=== PATIENT | male | born 1925 | race Hispanic/Latino ===

== ENCOUNTER 2017-02-28 15:41 | Inpatient (IN) | payer MEDICARE, MEDICAID ==
[2017-02-28 15:50] VITALS: BMI 25.8
--- NOTE | 2017-02-28 16:47 | ED PDOC ---
Arrival/HPI - General Chief Complaint: Male Genitourinary Time Seen by Provider: 02/28/17 15:51 Historian: Patient, Family (daughter (functioning as facilities administrator, as per patient request.)) - History of Present Illness Narrative History of Present Illness (Text): 02/28/17 15:51 A 89 year old Serbian speaking male, whose past medical history includes diabetes (diet controlled), and BPH, presents to the emergency department complaining of gross hematuria since 1200 today. Patients states prior to 1200 when he went to the bathroom there was no hematuria. He notes it is difficult for him to urinate and has been more frequent. He denies any dysuira, testicular pain, back pain, rectal bleeding, night sweats, loss of weight, abdominal pain, or any other complaints at this time. PMD: Dr. Jimenez Time/Duration: 4-6 hours Symptom Onset: Sudden Symptom Course: Unchanged Quality: Other Activities at Onset: Rest Context: Home Past Medical History - Provider Review Nursing Documentation Reviewed: Yes - Infectious Disease Hx of Infectious Diseases: None - Tetanus Immunization Tetanus Immunization: Unknown - Past Medical History Past Medical History: Unable to Obtain - Cardiac Hx Cardiac Disorders: Yes Hx Hypertension: Yes Other/Comment: cardiac cath 15 years ago - Pulmonary Hx Respiratory Disorders: No - Neurological Hx Neurological Disorder: No - HEENT Hx HEENT Disorder: No - Renal Hx Renal Disorder: No - Endocrine/Metabolic Hx Endocrine Disorders: Yes Hx Diabetes Mellitus Type 2: Yes (NIDD) - Hematological/Oncological Hx Blood Disorders: No - Integumentary Hx Dermatological Disorder: No - Musculoskeletal/Rheumatological Hx Musculoskeletal Disorders: No - Gastrointestinal Hx Gastrointestinal Disorders: No - Genitourinary/Gynecological Hx Genitourinary Disorders: Yes Hx Prostate Problems: Yes - Psychiatric Hx Psychophysiologic Disorder: No Hx Depression: No Hx Emotional Abuse: No Hx Physical Abuse: No Hx Substance Use: No - Past Surgical History Past Surgical History: Unable to Obtain - Surgical History Hx Cardiac Catheterization: Yes - Anesthesia Hx Anesthesia: Yes Hx Anesthesia Reactions: No - Suicidal Assessment Feels Threatened In Home Enviroment: No Family/Social History - Physician Review Nursing Documentation Reviewed: Yes Family/Social History: Unknown Family HX Smoking Status: Never Smoked Hx Alcohol Use: No Hx Substance Use: No Hx Substance Use Treatment: No Allergies/Home Meds Allergies/Adverse Reactions: Allergies No Known Allergies Allergy (Verified 08/02/13 17:21) Home Medications: Home Meds Medication Instructions Recorded Confirmed Clopidogrel [Plavix] 75 mg PO DAILY 08/02/13 02/28/17 MetFORMIN [glucoPHAGE] 500 mg PO DAILY 08/02/13 02/28/17 Atorvastatin [Lipitor] 10 mg PO DAILY 02/28/17 02/28/17 Enalapril/Hydrochlorothiazide 1 tab PO DAILY 02/28/17 02/28/17 [Enalapril-Hctz 10-25 mg Tablet] Metoprolol Succinate [Toprol XL] 25 mg PO DAILY 02/28/17 02/28/17 Review of Systems - Physician Review All systems were reviewed & negative as marked: Yes - Review of Systems Constitutional: absent: Weight Change, Night Sweats Gastrointestinal: absent: Abdominal Pain, Hematochezia Genitourinary Male: Frequency, Hematuria, Other (difficulty urinating; no testicular pain). absent: Dysuria Musculoskeletal: absent: Back Pain Physical Exam Vital Signs Reviewed: Yes Vital Signs Temp Pulse Resp BP Pulse Ox 02/28/17 17:12 86 18 145/79 98 02/28/17 15:52 97.6 F 92 H 19 149/88 98 Temperature: Afebrile Blood Pressure: Normal Pulse: Regular Respiratory Rate: Normal Appearance: Positive for: Well-Appearing, Non-Toxic, Comfortable Pain Distress: None Mental Status: Positive for: Alert and Oriented X 3 - Systems Exam Head: Present: Atraumatic, Normocephalic Pupils: Present: PERRL Extroacular Muscles: Present: EOMI Conjunctiva: Present: Normal Mouth: Present: Moist Mucous Membranes Neck: Present: Normal Range of Motion Respiratory/Chest: Present: Clear to Auscultation, Good Air Exchange. No: Respiratory Distress, Accessory Muscle Use Cardiovascular: Present: Regular Rate and Rhythm, Normal S1, S2. No: Murmurs Abdomen: Present: Normal Bowel Sounds. No: Tenderness, Distention, Peritoneal Signs Genitourinary Male: Present: Other (urine with gross positive blood) Back: Present: Normal Inspection Upper Extremity: Present: Normal Inspection. No: Cyanosis, Edema Lower Extremity: Present: Normal Inspection. No: Edema Neurological: Present: GCS=15, CN II-XII Intact, Speech Normal Skin: Present: Warm, Dry, Normal Color. No: Rashes Psychiatric: Present: Alert, Oriented x 3, Normal Insight, Normal Concentration Medical Decision Making ED Course and Treatment: 02/28/17 15:51 Impression: A 89 year old male with gross hematuria. Differential Diagnosis include but are not limited to: Cancer vs. UTI vs. Kidney failure Plan: -- Labs -- Urinalysis -- Reassess and disposition Prior Visits: Notes and results from previous visits were reviewed. The mello last presented to the emergency department on 08/02/13 for evaluation of constipation. Progress Notes: 02/28/17 17:34 Case was discussed with Urology Dr. Peter, who advises that we hydrate the and admit him for serial hgb and for a cystoscopy tomorrow. IVF ordered. Patient is comfortable. He just felt obstructed when he tried to urinate. He did have another clot of blood that came out. A louis was ordered. I discussed the case with Dr. Zaidi who will place patient on his service. - Lab Interpretations Lab Results: 02/28/17 16:45 02/28/17 16:45 Lab Results 02/28/17 16:45: Sodium 142, Potassium 4.6, Chloride 105, Carbon Dioxide 25, Anion Gap 17, BUN 26 H, Creatinine 1.1, Est GFR ( Amer) > 60, Est GFR ( Non-Af Amer) > 60, Random Glucose 99, Calcium 9.0 02/28/17 16:45: Urine Color Dark red, Urine Appearance Turbid, Urine pH 7.5, Ur Specific Lyman 1.015, Urine Protein >=300 H, Urine Glucose (UA) 250 H, Urine Ketones 40 H, Urine Blood Large H, Urine Nitrate Positive H, Urine Bilirubin Negative, Urine Urobilinogen >=8.0, Ur Leukocyte Esterase Large H, Urine RBC Tntc, Urine WBC 0 - 2, Urine Bacteria Few 02/28/17 16:45: PT 10.6, INR 0.98, APTT 24.6 02/28/17 16:45: WBC 5.9, RBC 4.10, Hgb 8.4 L, Hct 27.6 L, MCV 67.3 L, MCH 20.5 L , MCHC 30.4 L, RDW 18.9 H, Plt Count 374, MPV 10.0, Gran % 62.8, Lymph % (Auto) 25.9, Cross % (Auto) 8.9 H, Eos % (Auto) 1.7, Baso % (Auto) 0.7, Gran # 3.69, Lymph # 1.5, Cross # 0.5, Eos # 0.1, Baso # 0.04 I have reviewed the lab results: Yes Interpretation: Abnormal lab values (Hbg low at 8) - Scribe Statement The provider has reviewed the documentation as recorded by the Scribe Abdulkadir Pringle Provider Scribe Attestation: All medical record entries made by the Scribe were at my direction and personally dictated by me. I have reviewed the chart and agree that the record accurately reflects my personal performance of the history, physical exam, medical decision making, and the department course for this patient. I have also personally directed, reviewed, and agree with the discharge instructions and disposition. Disposition/Present on Arrival - Present on Arrival Any Indicators Present on Arrival: No History of DVT/PE: No History of Uncontrolled Diabetes: No Urinary Catheter: No History of Decub. Ulcer: No History Surgical Site Infection Following: None - Disposition Have Diagnosis and Disposition been Completed?: Yes Diagnosis: Gross hematuria Disposition: HOSPITALIZED Disposition Time: 17:57 Patient Plan: Observation Condition: FAIR
[2017-02-28 16:50] LABS: ADD MANUAL DIFF? NO
[2017-02-28 16:57] LABS: BASO # 0.04 K/mm3 (0.0-2.0); BASO % 0.7 % (0.0-3.0); EOS # 0.1 (0.0-0.7); EOS % 1.7 % (1.5-5.0); GRAN # 3.69 (1.4-6.5); GRAN % 62.8 % (50.0-68.0); HEMATOCRIT 27.6 % (42.0-52.0); LYMPH # 1.5 (1.2-3.4); LYMPH % 25.9 % (22.0-35.0); MEAN CELL VOLUME 67.3 fL (80.0-105.0); MEAN CORPUSCULAR HEMOGLOBIN 20.5 pg (25.0-35.0); MEAN CORPUSCULAR HGB CONC 30.4 g/dl (31.0-37.0); MONO # 0.5 (0.1-0.6); MONO % 8.9 % (1.0-6.0); PLATELET COUNT 374 10^3/uL (120.0-450.0); RED CELL DISTRIBUTION WIDTH 18.9 % (11.5-14.5); WHITE BLOOD COUNT 5.9 10^3/ul (4.5-11.0)
[2017-02-28 17:01] LABS: PH,URINE 7.5 (4.7-8.0); URINE APPEARANCE TURBID (CLEAR); URINE BILIRUBIN NEGATIVE (NEGATIVE); URINE BLOOD LARGE (NEGATIVE); URINE COLOR DARK RED (YELLOW); URINE GLUCOSE (UA) 250 mg/dL (NEGATIVE); URINE KETONE 40 mg/dL (NEGATIVE); URINE LEUKOCYTE ESTERASE LARGE Leu/uL (NEGATIVE); URINE PROTEIN >=300 mg/dL (<30 mg/dL); URINE UROBILINOGEN >=8.0 E.U./dL (<1 E.U./dL)
[2017-02-28 17:09] LABS: INR 0.98 (0.93-1.08); PARTIAL THROMBOPLASTIN TIME 24.6 Seconds (23.7-30.8); URINE BACTERIA FEW (NEG); URINE RBC TNTC /hpf (0-2); URINE WBC 0 - 2 /hpf (0-6)
[2017-02-28 17:10] LABS: BLOOD UREA NITROGEN 26 mg/dL (7-21); CARBON DIOXIDE 25 mmol/L (21-33); CHLORIDE 105 mmol/L (98-107); GFR AFRICAN-AMERICAN > 60; GLUCOSE,RANDOM 99 mg/dL (70-110); POTASSIUM 4.6 mmol/L (3.6-5.0); SODIUM 142 mmol/L (132-148)
[2017-03-01] MEDS: Sodium Chloride 0.45% 1,000 ML IV SCH (01:07)
[2017-03-01] MEDS: Insulin Lispro 1 UNITS/0.01 ML SC SCH ×4 (08:33→21:48)
--- NOTE | 2017-03-01 09:18 | CP.PCM.HP ---
History of Present Illness - History of Present Illness History of Present Illness: CC: Hematuria History of Present Illness: A 89 year old Bhutanese speaking male, whose past medical history includes Diabetes , Essential HTN and BPH, presents to the emergency department complaining of Gross hematuria since 1200 yesterday. Patients states prior to 1200 when he went to the bathroom there was no Hematuria. He notes it is difficult for him to urinate and has been more frequent. He denies any dysuira, testicular pain, back pain, rectal bleeding, night sweats, loss of weight, abdominal pain, or any other complaints at this time. Denies fever or chills. Present on Admission - Present on Admission Any Indicators Present on Admission: No History of DVT/PE: No History of Uncontrolled Diabetes: No Urinary Catheter: Yes (Bloody Urine) Decubitus Ulcer Present: No Review of Systems - Review of Systems All systems: reviewed and no additional remarkable complaints except - Genitourinary Genitourinary: As Per HPI Past Patient History - Infectious Disease Hx of Infectious Diseases: None - Tetanus Immunizations Tetanus Immunization: Unknown - Past Medical History & Family History Past Medical History?: Yes Past Family History: Reviewed and not pertinent - Past Social History Smoking Status: Never Smoked Alcohol: None Drugs: Denies - CARDIAC Hx Cardiac Disorders: Yes Hx Hypertension: Yes Other/Comment: cardiac cath 15 years ago - PULMONARY Hx Respiratory Disorders: No - NEUROLOGICAL Hx Neurological Disorder: No - HEENT Hx HEENT Problems: No - RENAL Hx Chronic Kidney Disease: No - ENDOCRINE/METABOLIC Hx Endocrine Disorders: Yes Hx Diabetes Mellitus Type 2: Yes (NIDD) - HEMATOLOGICAL/ONCOLOGICAL Hx Blood Disorders: No - INTEGUMENTARY Hx Dermatological Problems: No - MUSCULOSKELETAL/RHEUMATOLOGICAL Hx Falls: Yes - GASTROINTESTINAL Hx Gastrointestinal Disorders: No - GENITOURINARY/GYNECOLOGICAL Hx Genitourinary Disorders: Yes Hx Prostate Cancer: Yes Hx Prostate Problems: Yes - PSYCHIATRIC Hx Substance Use: No - SURGICAL HISTORY Hx Cardiac Catheterization: Yes - ANESTHESIA Hx Anesthesia: Yes Hx Anesthesia Reactions: No Meds Allergies/Adverse Reactions: Allergies Allergy/AdvReac Type Severity Reaction Status Date / Time No Known Allergies Allergy Verified 08/02/13 17:21 Physical Exam - Constitutional Appears: Well, No Acute Distress - Head Exam Head Exam: ATRAUMATIC, NORMAL INSPECTION, NORMOCEPHALIC - Eye Exam Eye Exam: EOMI, Normal appearance, PERRL Pupil Exam: NORMAL ACCOMODATION, PERRL - ENT Exam ENT Exam: Mucous Membranes Moist, Normal Exam - Neck Exam Neck exam: Positive for: Full Rom, Normal Inspection - Respiratory Exam Respiratory Exam: Clear to Auscultation Bilateral, NORMAL BREATHING PATTERN - Cardiovascular Exam Cardiovascular Exam: REGULAR RHYTHM, +S1, +S2 - GI/Abdominal Exam GI & Abdominal Exam: Normal Bowel Sounds, Soft. absent: Tenderness - Extremities Exam Extremities exam: Positive for: full ROM, normal inspection - Back Exam Back exam: FULL ROM, NORMAL INSPECTION. absent: CVA tenderness (L), CVA tenderness (R) - Neurological Exam Neurological exam: Alert, CN II-XII Intact, Normal Gait, Oriented x3, Reflexes Normal - Psychiatric Exam Psychiatric exam: Normal Affect, Normal Mood - Skin Skin Exam: Dry, Intact, Normal Color, Warm Results - Vital Signs Recent Vital Signs: Last Vital Signs Temp 97.9 F 03/01/17 07:30 Pulse 62 03/01/17 07:30 Resp 20 03/01/17 07:30 BP 167/86 H 03/01/17 07:30 Pulse Ox 99 03/01/17 07:30 - Labs Result Diagrams: 03/02/17 06:30 03/02/17 06:30 - Imaging and Cardiology CT scan - pelvis Status: Report reviewed by me Additional comment: IMPRESSION: Dense mass or clot in the bladder. Kidneys are unremarkable. No renal or ureteral stone. Assessment & Plan (1) Gross hematuria Assessment and Plan: IVF Continue Hobbs CAth PSA Urology Consult IV Ciprofloxacin Urine C/S Status: Acute Priority: High (2) Diabetes mellitus Assessment and Plan: ACCucheck with SS HGa!C Status: Acute Priority: Medium (3) Essential hypertension Assessment and Plan: Connue Home Medication Status: Chronic Priority: Low
[2017-03-01 09:33] LABS: RETIC% 0.98 % (0.5-1.5)
[2017-03-01] MEDS ORDERED: Ciprofloxacin 400mg/200ml D5W 400 MG/200 ML BAG IVPB SCH (10:00)
[2017-03-01 10:12] LABS: IRON 14 ug/dL (45-180)
--- NOTE | 2017-03-01 10:36 | US ---
HISTORY: Gross Hematuria COMPARISON: None. TECHNIQUE: Sonographic evaluation of the abdomen. FINDINGS: LIVER: Measures 13.1 x 10.4 x 9.1 cm. Normal echogenicity of the liver parenchyma. No mass. No intrahepatic bile duct dilatation. GALLBLADDER: Few small gallstones present. No gallbladder wall thickening or pericholecystic fluid. No sonographic Palmer sign reported COMMON BILE DUCT: Measures 4.5 mm. No stones. No dilatation. PANCREAS: Unremarkable as visualized. No mass. No ductal dilatation. RIGHT KIDNEY: Measures 10.3 x 5.5 x 5 point sickcm. Normal echogenicity. No or hydronephrosis. There is hyper echogenicity without definite shadowing in the right upper renal pole -non shadowing calculus versus a benign angiomyolipoma are most likely considerations. 2.0 x 1.7 x 1.8 cm right parapelvic renal cysts is suggested. Another probable cyst with debris in the lower pole measuring 2.2 x 1.5 x 1.4 cm in size is noted. LEFT KIDNEY: Measures 11.8 x 5.2 x 5.2cm. Normal echogenicity. No hydronephrosis. An upper pole cortical nearly anechoic mass probably a cyst with debris measuring 1.2 x 1.7 x 1.4 cm in size is noted. Equivocal tiny nonobstructing left renal calcifications are question. No obstructing calculi appreciate d SPLEEN: Normal in size and contour. No mass. AORTA: No aneurysmal dilatation. IVC: Unremarkable. OTHER FINDINGS: None. IMPRESSION: Bilateral renal benign appearing cystic masses ; some with low level echoes -cysts with debris favored.Because of their hypo echogenic appearance their etiology is indeterminate. Benign etiology nevertheless is still favored. No hydronephrosis. Small nonobstructing renal calculi possible. Consider CT of the abdomen and pelvis without and with contrast with delayed images . Few tiny gallstones. No ancillary signs of acute cholecystitis suggested
--- NOTE | 2017-03-01 16:14 | CT ---
PROCEDURE: CT Abdomen and Pelvis without intravenous contrast HISTORY: hematuria COMPARISON: None. TECHNIQUE: Without contrast. Contrast Dose: Radiation dose: Total exam DLP = 705 mGy-cm. This CT exam was performed using one or more of the following dose reduction techniques: Automated exposure control, adjustment of the mA and/or kV according to patient size, and/or use of iterative reconstruction technique. FINDINGS: LOWER THORAX: Unremarkable. LIVER: Unremarkable. No gross lesion or ductal dilatation. GALLBLADDER AND BILE DUCTS: Unremarkable. PANCREAS: Unremarkable. No gross lesion or ductal dilatation. SPLEEN: Unremarkable. ADRENALS: Unremarkable. No mass. KIDNEYS AND URETERS: Unremarkable. No hydronephrosis. No solid mass. VASCULATURE: Unremarkable. No aortic aneurysm. BOWEL: Unremarkable. No obstruction. No gross mural thickening. APPENDIX: Unremarkable. Normal appendix. PERITONEUM: Unremarkable. No free fluid. No free air. LYMPH NODES: Unremarkable. No enlarged lymph nodes. BLADDER: There is a dense mass or clot in the bladder measuring 3.7 x 4.6 cm REPRODUCTIVE: Multiple metallic radiation seeds are seen in the prostate BONES: No acute fracture. OTHER FINDINGS: None. IMPRESSION: Dense mass or clot in the bladder. Kidneys are unremarkable. No renal or ureteral stone.
--- NOTE | 2017-03-01 23:31 | PCM.URO ---
Urology Progress Note - Objective Intake & Output: Intake & Output 03/01/17 03/01/17 03/02/17 06:59 18:59 06:59 Intake Total 360 Output Total 600 Balance -240 Intake: Oral 360 Output: Urine 600 Urethral (Hobbs) 600 Other: # Bowel Movements 0
[2017-03-02 07:20] LABS: ADD MANUAL DIFF? NO
[2017-03-02 07:28] LABS: BASO # 0.03 K/mm3 (0.0-2.0); BASO % 0.6 % (0.0-3.0); EOS # 0.1 (0.0-0.7); EOS % 1.9 % (1.5-5.0); GRAN # 2.61 (1.4-6.5); GRAN % 55.3 % (50.0-68.0); HEMATOCRIT 26.3 % (42.0-52.0); LYMPH # 1.6 (1.2-3.4); LYMPH % 33.7 % (22.0-35.0); MEAN CELL VOLUME 67.1 fL (80.0-105.0); MEAN CORPUSCULAR HEMOGLOBIN 20.2 pg (25.0-35.0); MEAN PLATELET VOLUME 10.2 fl (7.0-11.0); MONO # 0.4 (0.1-0.6); MONO % 8.5 % (1.0-6.0); PLATELET COUNT 339 10^3/uL (120.0-450.0); RED CELL DISTRIBUTION WIDTH 18.8 % (11.5-14.5); WHITE BLOOD COUNT 4.7 10^3/ul (4.5-11.0)
[2017-03-02 07:39] LABS: BLOOD UREA NITROGEN 16 mg/dL (7-21); CALCIUM 8.5 mg/dL (8.4-10.5); CARBON DIOXIDE 26 mmol/L (21-33); CHLORIDE 105 mmol/L (98-107); CHOLESTEROL 115 mg/dL (130-200); GFR AFRICAN-AMERICAN > 60; GLUCOSE,RANDOM 108 mg/dL (70-110); SODIUM 138 mmol/L (132-148)
[2017-03-02] MEDS: Insulin Lispro 1 UNITS/0.01 ML SC SCH ×4 (08:53→21:57)
--- NOTE | 2017-03-02 19:17 | CP.PCM.PN ---
Subjective - Date & Time of Evaluation Date of Evaluation: 03/02/17 Time of Evaluation: 07:15 - Subjective Subjective: Seen and examined at the bed side. Still with Gross Hematuria. Scheduled for Cystescopy. Denies fever or chills. Objective - Vital Signs/Intake and Output Vital Signs (last 24 hours): Temp Pulse Resp BP Pulse Ox 97.5 F L 64 20 136/76 98 03/02/17 17:32 03/02/17 17:32 03/02/17 17:32 03/02/17 17:32 03/02/17 16:00 Intake and Output: 03/02/17 03/03/17 18:59 06:59 Intake Total 22 Output Total 1250 Balance -1228 - Medications Medications: Current Medications Atorvastatin Calcium (Lipitor) 10 mg PO DAILY [facility] Last Admin: 03/02/17 09:59 Dose: Not Given Sodium Chloride (Sodium Chloride 0.45%) 1,000 mls @ 100 mls/hr IV .Q10H [facility] Last Admin: 03/01/17 01:07 Dose: 100 mls/hr Insulin Human Lispro (Humalog) 0 units SC ACHS [facility] PRN Reason: Protocol Last Admin: 03/02/17 16:36 Dose: Not Given Lactulose (Enulose) 30 gm PO BID [facility] Last Admin: 03/02/17 17:58 Dose: Not Given Losartan Potassium (Cozaar) 100 mg PO DAILY [facility] Last Admin: 03/02/17 09:59 Dose: Not Given Metformin HCl (Glucophage) 500 mg PO BRK [facility] Last Admin: 03/02/17 08:53 Dose: Not Given - Labs Labs: 03/02/17 06:30 03/02/17 06:30 PT 10.6 Seconds (9.9-11.8) 02/28/17 16:45 INR 0.98 (0.93-1.08) 02/28/17 16:45 APTT 24.6 Seconds (23.7-30.8) 02/28/17 16:45 - Constitutional Appears: Well - Head Exam Head Exam: ATRAUMATIC, NORMAL INSPECTION, NORMOCEPHALIC - Eye Exam Eye Exam: EOMI, Normal appearance, PERRL Pupil Exam: NORMAL ACCOMODATION, PERRL - ENT Exam ENT Exam: Mucous Membranes Moist, Normal Exam - Neck Exam Neck Exam: Full ROM, Normal Inspection. absent: Lymphadenopathy - Respiratory Exam Respiratory Exam: Clear to Ausculation Bilateral, NORMAL BREATHING PATTERN - Cardiovascular Exam Cardiovascular Exam: REGULAR RHYTHM, +S1, +S2. absent: Murmur - GI/Abdominal Exam GI & Abdominal Exam: Soft, Normal Bowel Sounds. absent: Tenderness - Exam Additional comments: Hobbs CAth with Fresh Bloody urine in the bag. - Extremities Exam Extremities Exam: Full ROM, Normal Capillary Refill, Normal Inspection. absent : Joint Swelling, Pedal Edema - Neurological Exam Neurological Exam: Alert, Awake, CN II-XII Intact, Normal Gait, Oriented x3 - Psychiatric Exam Psychiatric exam: Normal Affect, Normal Mood - Skin Skin Exam: Dry, Intact, Normal Color, Warm Assessment and Plan (1) UTI (urinary tract infection) Assessment & Plan: Gross Hematuria IVF Continue Hobbs Cath PSA Urology Consult IV Ciprofloxacin Urine C/S Monitor I/O Status: Acute Priority: High (2) Diabetes mellitus Assessment and Plan: ACCucheck with SS HGa!C Status: Acute Priority: Medium (3) Essential hypertension Assessment and Plan: Connue Home Medication Status: Acute
[2017-03-02 20:05] LABS: TOTAL PSA 0.1 ng/mL (<=4.0)
[2017-03-02 22:44] LABS: ADD MANUAL DIFF? NO
[2017-03-02 22:50] LABS: BASO # 0.03 K/mm3 (0.0-2.0); BASO % 0.6 % (0.0-3.0); EOS # 0.1 (0.0-0.7); EOS % 1.3 % (1.5-5.0); GRAN # 3.19 (1.4-6.5); GRAN % 60.7 % (50.0-68.0); HEMATOCRIT 27.3 % (42.0-52.0); LYMPH # 1.3 (1.2-3.4); MEAN CELL VOLUME 67.6 fL (80.0-105.0); MEAN CORPUSCULAR HEMOGLOBIN 20.8 pg (25.0-35.0); MEAN CORPUSCULAR HGB CONC 30.8 g/dl (31.0-37.0); MEAN PLATELET VOLUME 9.5 fl (7.0-11.0); MONO # 0.7 (0.1-0.6); MONO % 12.4 % (1.0-6.0); PLATELET COUNT 294 10^3/uL (120.0-450.0); RED CELL DISTRIBUTION WIDTH 18.7 % (11.5-14.5); WHITE BLOOD COUNT 5.3 10^3/ul (4.5-11.0)
[2017-03-02 22:57] LABS: INR 1.05 (0.93-1.08); PARTIAL THROMBOPLASTIN TIME 24.3 Seconds (23.7-30.8)
[2017-03-02 23:22] LABS: ALB/GLOB RATIO 1.1 (1.1-1.8); ALKALINE PHOSPHATASE 38 U/L (38-133); ALT/SGPT 24 U/L (7-56); AST/SGOT 23 U/L (15-59); BILIRUBIN,TOTAL 1.9 mg/dL (0.2-1.3); BLOOD UREA NITROGEN 19 mg/dL (7-21); CALCIUM 8.7 mg/dL (8.4-10.5); CARBON DIOXIDE 26 mmol/L (21-33); CHLORIDE 103 mmol/L (98-107); GFR AFRICAN-AMERICAN > 60; GLUCOSE,RANDOM 168 mg/dL (70-110); POTASSIUM 3.5 mmol/L (3.6-5.0); SODIUM 138 mmol/L (132-148); TOTAL PROTEIN 6.4 g/dL (5.8-8.3)
[2017-03-03] MEDS: Sodium Chloride 0.45% 1,000 ML IV SCH ×2 (06:11)
--- NOTE | 2017-03-03 08:06 | PCM.URO ---
Urology Progress Note - Objective Lab Results Last 24 Hours: Laboratory Results - last 24 hr 03/02/17 03/02/17 03/02/17 06:30 06:30 11:11 WBC RBC Hgb Hct MCV MCH MCHC RDW Plt Count MPV Gran % Lymph % (Auto) [place] % (Auto) Eos % (Auto) Baso % (Auto) Gran # Lymph # [place] # Eos # Baso # PT INR APTT Sodium Potassium Chloride Carbon Dioxide Anion Gap BUN Creatinine Est GFR ( Amer) Est GFR (Non-Af Amer) POC Glucose (mg/dL) 112 H Random Glucose Hemoglobin A1c 6.4 Calcium Total Bilirubin AST ALT Alkaline Phosphatase Total Protein Albumin Globulin Albumin/Globulin Ratio TSH 3rd Generation 1.61 Blood Type Blood Type Confirm Antibody Screen Crossmatch BBK History Checked 03/02/17 03/02/17 03/02/17 13:36 13:50 21:32 WBC RBC Hgb Hct MCV MCH MCHC RDW Plt Count MPV Gran % Lymph % (Auto) [place] % (Auto) Eos % (Auto) Baso % (Auto) Gran # Lymph # [place] # Eos # Baso # PT INR APTT Sodium Potassium Chloride Carbon Dioxide Anion Gap BUN Creatinine Est GFR ( Amer) Est GFR (Non-Af Amer) POC Glucose (mg/dL) 188 H Random Glucose Hemoglobin A1c Calcium Total Bilirubin AST ALT Alkaline Phosphatase Total Protein Albumin Globulin Albumin/Globulin Ratio TSH 3rd Generation Blood Type A POSITIVE Blood Type Confirm A POSITIVE Antibody Screen Negative Crossmatch See Detail BBK History Checked No verified bt 03/02/17 03/02/17 03/02/17 22:43 22:43 22:43 WBC 5.3 RBC 4.04 Hgb 8.4 L Hct 27.3 L MCV 67.6 L MCH 20.8 L MCHC 30.8 L RDW 18.7 H Plt Count 294 MPV 9.5 Gran % 60.7 Lymph % (Auto) 25.0 [place] % (Auto) 12.4 H Eos % (Auto) 1.3 L Baso % (Auto) 0.6 Gran # 3.19 Lymph # 1.3 Free[place] # 0.7 H Eos # 0.1 Baso # 0.03 PT 11.3 INR 1.05 APTT 24.3 Sodium 138 Potassium 3.5 L Chloride 103 Carbon Dioxide 26 Anion Gap 13 BUN 19 Creatinine 1.0 Est GFR ( Amer) > 60 Est GFR (Non-Af Amer) > 60 POC Glucose (mg/dL) Random Glucose 168 H Hemoglobin A1c Calcium 8.7 Total Bilirubin 1.9 H AST 23 ALT 24 Alkaline Phosphatase 38 Total Protein 6.4 Albumin 3.3 Globulin 3.1 Albumin/Globulin Ratio 1.1 TSH 3rd Generation Blood Type Blood Type Confirm Antibody Screen Crossmatch BBK History Checked 03/03/17 07:34 WBC RBC Hgb Hct MCV MCH MCHC RDW Plt Count MPV Gran % Lymph % (Auto) [place] % (Auto) Eos % (Auto) Baso % (Auto) Gran # Lymph # [place] # Eos # Baso # PT INR APTT Sodium Potassium Chloride Carbon Dioxide Anion Gap BUN Creatinine Est GFR ( Amer) Est GFR (Non-Af Amer) POC Glucose (mg/dL) 103 Random Glucose Hemoglobin A1c Calcium Total Bilirubin AST ALT Alkaline Phosphatase Total Protein Albumin Globulin Albumin/Globulin Ratio [facility] 3rd Generation Blood Type Blood Type Confirm Antibody Screen Crossmatch BBK History Checked Intake & Output: Intake & Output 03/02/17 03/03/17 03/03/17 18:59 06:59 18:59 Intake Total 22 1530 Output Total 1250 300 Balance -1228 1230 Intake: IV 825 Left Antecubital 825 Oral 360 Blood Product 0 320 Red Blood Cells Cpd As1 0 320 Lr Unit [id number] Other 22 25 Red Blood Cells Cpd As1 22 25 Lr Unit [id number] Output: Urine 1250 300 Urine, Voided 1250 300 Other: # Voids Urethral (Hobbs) 0 # Bowel Movements 1 0 Vital Signs: Vital Signs - 24 hr 03/02/17 03/02/17 03/02/17 13:35 14:45 16:00 Temperature 98.5 F 97.4 F L Pulse Rate 69 73 73 Respiratory 18 20 Rate Blood Pressure 168/93 H 144/85 145/95 H O2 Sat by Pulse 99 98 Oximetry 03/02/17 03/02/17 03/02/17 16:32 16:47 17:32 Temperature 97.4 F L 97.9 F 97.5 F L Pulse Rate 73 65 64 Respiratory 20 20 20 Rate Blood Pressure 145/95 H 142/86 136/76 O2 Sat by Pulse Oximetry 03/02/17 20:19 Temperature 97.9 F Pulse Rate 71 Respiratory 20 Rate Blood Pressure 137/83 O2 Sat by Pulse Oximetry
[2017-03-03] MEDS: Insulin Lispro 1 UNITS/0.01 ML SC SCH ×3 (08:26→16:35)
--- NOTE | 2017-03-03 08:43 | RAD ---
HISTORY: preop COMPARISON: No prior. TECHNIQUE: Chest PA and lateral FINDINGS: LUNGS: Minimal bibasilar linear atelectasis. PLEURA: No significant pleural effusion identified. No pneumothorax apparent. CARDIOVASCULAR: Normal. OSSEOUS STRUCTURES: No significant abnormalities. VISUALIZED UPPER ABDOMEN: Normal. OTHER FINDINGS: None. IMPRESSION: No active disease.
--- NOTE | 2017-03-03 13:25 | CARD ---
APPROVED REPORT EKG Measurement Heart [id number] [id number] <Conclusion> Normal sinus rhythm, 1 PVC (first beat) Left axis deviation
[2017-03-03] MEDS ORDERED: Propofol 10 mg/ml Inj (20 ML) ONE (16:14)
[2017-03-03] MEDS ORDERED: Labetalol 5 mg/ml Inj 20ML ONE (16:15)
[2017-03-03] MEDS ORDERED: Midazolam 2 MG/2 ML VIAL ONE (16:17)
[2017-03-03] MEDS ORDERED: Liquid Adhesive TOP ONE (16:22)
[2017-03-03] MEDS ORDERED: Lidocaine 2% Jelly (Uro-Jet) ONE (16:22)
[2017-03-03] MEDS ORDERED: HYDROmorphone 0.5 mg/0.5 ml ISec IVP PRN (16:38)
[2017-03-03] MEDS ORDERED: HYDROmorphone 0.5 mg/0.5 ml ISec IVP ONE ×2 (16:40→17:03)
[2017-03-03] MEDS ORDERED: HYDROmorphone 0.5 mg/0.5 ml ISec ONE (17:01)
[2017-03-03] MEDS: Metoprolol Succinate 25 mg XL Tab PO SCH (19:12)
[2017-03-03] MEDS ORDERED: Morphine 2 mg/ml ISec IVP PRN (21:34)
--- NOTE | 2017-03-03 23:49 | CP.PCM.PN ---
Subjective - Date & Time of Evaluation Date of Evaluation: 03/03/17 Time of Evaluation: 13:00 - Subjective Subjective: Seen and examined at the bed side. Cystoscopy cancelled due to H/H drop and will transfuse to bring Hgb>8mg/dl. Objective - Vital Signs/Intake and Output Vital Signs (last 24 hours): Temp Pulse Resp BP Pulse Ox 98.2 F 70 18 217/107 H 95 03/03/17 17:35 03/03/17 19:12 03/03/17 17:35 03/03/17 19:12 03/03/17 17:35 Intake and Output: 03/03/17 03/04/17 18:59 06:59 Intake Total 300 240 Output Total 300 1100 Balance 0 -860 - Medications Medications: Current Medications Acetaminophen (Tylenol 325mg Tab) 650 mg PO Q6H PRN PRN Reason: Pain, moderate (4-7) Atorvastatin Calcium (Lipitor) 10 mg PO DAILY [facility] Last Admin: 03/03/17 13:29 Dose: Not Given Hydralazine HCl (Apresoline) 25 mg PO BID [facility] Last Admin: 03/03/17 19:09 Dose: Not Given Sodium Chloride (Sodium Chloride 0.45%) 1,000 mls @ 100 mls/hr IV .Q10H [facility] Last Admin: 03/03/17 06:11 Dose: 100 mls/hr Insulin Human Lispro (Humalog) 0 units SC ACHS [facility] PRN Reason: Protocol Last Admin: 03/03/17 16:35 Dose: Not Given Lactulose (Enulose) 30 gm PO BID [facility] Last Admin: 03/03/17 09:38 Dose: Not Given Lisinopril (Zestril) 10 mg PO DAILY [facility] Last Admin: 03/03/17 19:11 Dose: 10 mg Losartan Potassium (Cozaar) 100 mg PO DAILY [facility] Last Admin: 03/03/17 09:38 Dose: Not Given Metformin HCl (Glucophage) 500 mg PO BRK [facility] Last Admin: 03/03/17 09:37 Dose: Not Given Metoprolol Succinate (Toprol Xl) 25 mg PO BRK [facility] Last Admin: 03/03/17 19:12 Dose: 25 mg Morphine Sulfate (Morphine) 2 mg IVP Q6H PRN PRN Reason: Pain, severe (8-10) Ondansetron HCl (Zofran Inj) 4 mg IVP ONCE PRN PRN Reason: Nausea/Vomiting - Labs Labs: 03/02/17 22:43 03/02/17 22:43 PT 11.3 Seconds (9.9-11.8) 03/02/17 22:43 INR 1.05 (0.93-1.08) 03/02/17 22:43 APTT 24.3 Seconds (23.7-30.8) 03/02/17 22:43 - Constitutional Appears: Well, No Acute Distress - Head Exam Head Exam: ATRAUMATIC, NORMAL INSPECTION, NORMOCEPHALIC - Eye Exam Eye Exam: EOMI, Normal appearance, PERRL Pupil Exam: NORMAL ACCOMODATION, PERRL - ENT Exam ENT Exam: Mucous Membranes Moist, Normal Exam - Neck Exam Neck Exam: Full ROM, Normal Inspection. absent: Lymphadenopathy - Respiratory Exam Respiratory Exam: Clear to Ausculation Bilateral, NORMAL BREATHING PATTERN - Cardiovascular Exam Cardiovascular Exam: REGULAR RHYTHM, +S1, +S2. absent: Murmur - GI/Abdominal Exam GI & Abdominal Exam: Soft, Normal Bowel Sounds. absent: Tenderness - Exam Additional comments: Hobbs Cath in place draining gross Hematuria. - Extremities Exam Extremities Exam: Full ROM, Normal Capillary Refill, Normal Inspection. absent : Joint Swelling, Pedal Edema - Back Exam Back Exam: NORMAL INSPECTION - Neurological Exam Neurological Exam: Alert, Awake, CN II-XII Intact, Normal Gait, Oriented x3 - Psychiatric Exam Psychiatric exam: Normal Affect, Normal Mood - Skin Skin Exam: Dry, Intact, Normal Color, Warm Assessment and Plan (1) Gross hematuria Assessment & Plan: IVF Severe Anemia Transfuse PRBCs Continue Hobbs Cath Urology Consult IV Ciprofloxacin Urine C/S Status: Acute Priority: High (2) Diabetes mellitus Assessment and Plan: ACCucheck with SS HGa!C Status: Acute Priority: Medium (3) Essential hypertension Assessment and Plan: Continue Home Medication Status: Acute
[2017-03-04] MEDS: Insulin Lispro 1 UNITS/0.01 ML SC SCH ×5 (02:28→22:00)
[2017-03-04] MEDS: Sodium Chloride 0.45% 1,000 ML IV SCH (04:09)
[2017-03-04 08:12] LABS: ADD MANUAL DIFF? NO
[2017-03-04 08:19] LABS: BASO # 0.03 K/mm3 (0.0-2.0); BASO % 0.4 % (0.0-3.0); EOS # 0.1 (0.0-0.7); GRAN # 5.04 (1.4-6.5); GRAN % 71.8 % (50.0-68.0); HEMATOCRIT 31.6 % (42.0-52.0); LYMPH % 14.7 % (22.0-35.0); MEAN CELL VOLUME 68.4 fL (80.0-105.0); MEAN CORPUSCULAR HEMOGLOBIN 21.4 pg (25.0-35.0); MEAN CORPUSCULAR HGB CONC 31.3 g/dl (31.0-37.0); MEAN PLATELET VOLUME 10.5 fl (7.0-11.0); MONO # 0.8 (0.1-0.6); MONO % 11.1 % (1.0-6.0); PLATELET COUNT 326 10^3/uL (120.0-450.0); RED CELL DISTRIBUTION WIDTH 19.2 % (11.5-14.5)
[2017-03-04] MEDS: Metoprolol Succinate 25 mg XL Tab PO SCH (10:31)
[2017-03-05 08:27] LABS: ALKALINE PHOSPHATASE 42 U/L (38-133); ALT/SGPT 29 U/L (7-56); AST/SGOT 20 U/L (15-59); BASO # 0.03 K/mm3 (0.0-2.0); BASO % 0.5 % (0.0-3.0); BILIRUBIN,TOTAL 0.8 mg/dL (0.2-1.3); BLOOD UREA NITROGEN 14 mg/dL (7-21); CALCIUM 8.5 mg/dL (8.4-10.5); CARBON DIOXIDE 24 mmol/L (21-33); CHLORIDE 107 mmol/L (98-107); EOS # 0.2 (0.0-0.7); EOS % 2.8 % (1.5-5.0); GFR AFRICAN-AMERICAN > 60; GLUCOSE,RANDOM 109 mg/dL (70-110); GRAN # 3.69 (1.4-6.5); GRAN % 60.9 % (50.0-68.0); HEMATOCRIT 30.4 % (42.0-52.0); LYMPH # 1.5 (1.2-3.4); LYMPH % 24.6 % (22.0-35.0); MEAN CELL VOLUME 69.4 fL (80.0-105.0); MEAN CORPUSCULAR HEMOGLOBIN 21.5 pg (25.0-35.0); MEAN CORPUSCULAR HGB CONC 30.9 g/dl (31.0-37.0); MEAN PLATELET VOLUME 10.4 fl (7.0-11.0); MONO # 0.7 (0.1-0.6); MONO % 11.2 % (1.0-6.0); PLATELET COUNT 288 10^3/uL (120.0-450.0); POTASSIUM 3.8 mmol/L (3.6-5.0); RED CELL DISTRIBUTION WIDTH 19.6 % (11.5-14.5); SODIUM 139 mmol/L (132-148); TOTAL PROTEIN 6.2 g/dL (5.8-8.3); WHITE BLOOD COUNT 6.1 10^3/ul (4.5-11.0)
[2017-03-05] MEDS: Metoprolol Succinate 25 mg XL Tab PO SCH (09:33)
[2017-03-05] MEDS: Insulin Lispro 1 UNITS/0.01 ML SC SCH ×4 (09:34→21:50)
[2017-03-05 10:11] LABS: ADD MANUAL DIFF? NO
[2017-03-05] MEDS: Sodium Chloride 0.45% 1,000 ML IV SCH (17:00)
[2017-03-05 19:33] VITALS: O2SAT 98
--- NOTE | 2017-03-05 20:25 | PCM.URO ---
Urology Progress Note - Objective Lab Results Last 24 Hours: Laboratory Results - last 24 hr 03/04/17 03/05/17 03/05/17 21:06 07:11 07:30 WBC 6.1 RBC 4.38 Hgb 9.4 L Hct 30.4 L MCV 69.4 L MCH 21.5 L MCHC 30.9 L RDW 19.6 H Plt Count 288 MPV 10.4 Gran % 60.9 Lymph % (Auto) 24.6 Riley % (Auto) 11.2 H Eos % (Auto) 2.8 Baso % (Auto) 0.5 Gran # 3.69 Lymph # 1.5 Riley # 0.7 H Eos # 0.2 Baso # 0.03 Sodium Potassium Chloride Carbon Dioxide Anion Gap BUN Creatinine Est GFR ( Amer) Est GFR (Non-Af Amer) POC Glucose (mg/dL) 179 H 133 H Random Glucose Calcium Total Bilirubin AST ALT Alkaline Phosphatase Total Protein Albumin Globulin Albumin/Globulin Ratio 03/05/17 03/05/17 03/05/17 07:30 11:29 16:19 WBC RBC Hgb Hct MCV MCH MCHC RDW Plt Count MPV Gran % Lymph % (Auto) Riley % (Auto) Eos % (Auto) Baso % (Auto) Gran # Lymph # Riley # Eos # Baso # Sodium 139 Potassium 3.8 Chloride 107 Carbon Dioxide 24 Anion Gap 12 BUN 14 Creatinine 0.9 Est GFR ( Amer) > 60 Est GFR (Non-Af Amer) > 60 POC Glucose (mg/dL) 106 87 Random Glucose 109 Calcium 8.5 Total Bilirubin 0.8 AST 20 ALT 29 Alkaline Phosphatase 42 Total Protein 6.2 Albumin 3.1 Globulin 3.2 Albumin/Globulin Ratio 1.0 L Intake & Output: Intake & Output 03/05/17 03/05/17 03/06/17 06:59 18:59 06:59 Intake Total 778 485 1518 Output Total 600 900 Balance -260 -180 1200 Intake: IV 1200 Left Antecubital 1200 Oral 340 720 Output: Urine 600 900 Urine, Voided 600 900 Other: # Voids Urethral (Hobbs) 0 Urine, Voided 4 200 # Bowel Movements 0 Vital Signs: Vital Signs - 24 hr 03/05/17 03/05/17 08:00 18:00 Temperature 98.1 F 98.6 F Pulse Rate 63 66 Respiratory 18 Rate Blood Pressure 146/78 150/69 O2 Sat by Pulse 96 98 Oximetry
--- NOTE | 2017-03-05 22:37 | CP.PCM.PN ---
Subjective - Date & Time of Evaluation Date of Evaluation: 03/05/17 Time of Evaluation: 22:00 - Subjective Subjective: Seen and examined at the bed side. He states feeling better. Objective - Vital Signs/Intake and Output Vital Signs (last 24 hours): Temp Pulse Resp BP Pulse Ox 98.6 F 66 18 150/69 98 03/05/17 18:00 03/05/17 18:00 03/05/17 08:00 03/05/17 18:00 03/05/17 18:00 Intake and Output: 03/05/17 03/06/17 18:59 06:59 Intake Total 720 1560 Output Total 900 800 Balance -180 760 - Medications Medications: Current Medications Acetaminophen (Tylenol 325mg Tab) 650 mg PO Q6H PRN PRN Reason: Pain, moderate (4-7) Atorvastatin Calcium (Lipitor) 10 mg PO DAILY [facility] Last Admin: 03/05/17 09:34 Dose: 10 mg Hydralazine HCl (Apresoline) 25 mg PO BID [facility] Last Admin: 03/05/17 16:59 Dose: 25 mg Sodium Chloride (Sodium Chloride 0.45%) 1,000 mls @ 100 mls/hr IV .Q10H [facility] Last Admin: 03/05/17 17:00 Dose: 100 mls/hr Insulin Human Lispro (Humalog) 0 units SC ACHS [facility] PRN Reason: Protocol Last Admin: 03/05/17 21:50 Dose: Not Given Lactulose (Enulose) 30 gm PO BID [facility] Last Admin: 03/05/17 17:03 Dose: Not Given Lisinopril (Zestril) 10 mg PO DAILY [facility] Last Admin: 03/05/17 09:34 Dose: 10 mg Losartan Potassium (Cozaar) 100 mg PO DAILY [facility] Last Admin: 03/05/17 09:34 Dose: 100 mg Metformin HCl (Glucophage) 500 mg PO BRK [facility] Last Admin: 03/05/17 09:34 Dose: 500 mg Metoprolol Succinate (Toprol Xl) 25 mg PO BRK [facility] Last Admin: 03/05/17 09:33 Dose: 25 mg Morphine Sulfate (Morphine) 2 mg IVP Q6H PRN PRN Reason: Pain, severe (8-10) Ondansetron HCl (Zofran Inj) 4 mg IVP ONCE PRN PRN Reason: Nausea/Vomiting - Labs Labs: 03/05/17 07:30 03/05/17 07:30 PT 11.3 Seconds (9.9-11.8) 03/02/17 22:43 INR 1.05 (0.93-1.08) 03/02/17 22:43 APTT 24.3 Seconds (23.7-30.8) 03/02/17 22:43 - Constitutional Appears: Well, No Acute Distress - Head Exam Head Exam: ATRAUMATIC, NORMAL INSPECTION, NORMOCEPHALIC - Eye Exam Eye Exam: EOMI, Normal appearance, PERRL Pupil Exam: NORMAL ACCOMODATION, PERRL - ENT Exam ENT Exam: Mucous Membranes Moist, Normal Exam - Neck Exam Neck Exam: Full ROM, Normal Inspection. absent: Lymphadenopathy - Respiratory Exam Respiratory Exam: Clear to Ausculation Bilateral, NORMAL BREATHING PATTERN - Cardiovascular Exam Cardiovascular Exam: REGULAR RHYTHM, +S1, +S2. absent: Murmur - GI/Abdominal Exam GI & Abdominal Exam: Soft, Normal Bowel Sounds. absent: Tenderness - Extremities Exam Extremities Exam: Full ROM, Normal Capillary Refill, Normal Inspection. absent : Joint Swelling, Pedal Edema - Back Exam Back Exam: NORMAL INSPECTION - Neurological Exam Neurological Exam: Alert, Awake, CN II-XII Intact, Normal Gait, Oriented x3 - Psychiatric Exam Psychiatric exam: Normal Affect, Normal Mood - Skin Skin Exam: Dry, Intact, Normal Color, Warm Assessment and Plan (1) Gross hematuria Assessment & Plan: IVF Continue Hobbs CAth S/P Custoscopy IV Ciprofloxacin Status: Acute Priority: High (2) Diabetes mellitus Assessment and Plan: ACCucheck with SS HgA1C Status: Acute Priority: Medium (3) Essential hypertension Assessment and Plan: Continue Home Medication Status: Acute
[2017-03-06 07:49] VITALS: PULSE 56; RESP 20; TEMP 97.5
[2017-03-06] MEDS: Insulin Lispro 1 UNITS/0.01 ML SC SCH ×3 (08:00→17:42)
[2017-03-06] MEDS: Metoprolol Succinate 25 mg XL Tab PO SCH (09:33)
--- NOTE | 2017-03-06 11:28 | CARD ---
APPROVED REPORT EXAM: Two-dimensional and M-mode echocardiogram with Doppler and color Doppler. Other Information Quality : AverageRhythm : INDICATION Pre-Op 2D DIMENSIONS Left Atrium (2D)4.0 (1.6-4.0cm)IVSd1.3 (0.7-1.1cm) LVDd4.7 (3.9-5.9cm)PWd1.3 (0.7-1.1cm) LVDs3.5 (2.5-4.0cm)FS (%) 26.3 % LVEF (%)51.0 (>50%) M-Mode DIMENSIONS Aortic Root3.80 (2.2-3.7cm)Aortic Cusp Exc.1.90 (1.5-2.0cm) Aortic Valve AoV Peak Qxzjrhqu701.0cm/s Mitral Valve MV E Ptggrnxf10.0cm/sMV A Mkbtrbrh747.0cm/sE/A ratio0.7 TDI Lateral E' Peak V6.43cm/sMedial E' Peak V4.87cm/sE/Lateral E'11.7 E/Medial E'15.4 Pulmonary Valve PV Peak Ocvldcuj41.6cm/sPV Peak Grad.2mmHg Tricuspid Valve TR Peak Fqoxrhmb132ml/sRAP [id number] Peak Gr.23mmHg [id number] LEFT VENTRICLE The left ventricle is normal size. There is mild concentric left ventricular hypertrophy. The left ventricular function is normal. The left ventricular ejection fraction is within the normal range. There is normal LV segmental wall motion. RIGHT VENTRICLE The right ventricle is normal size. ATRIA The left atrium size is normal. The right atrium size is normal. The interatrial septum is intact with no evidence for an atrial septal defect. AORTIC VALVE The aortic valve is mildly calcified. There is mild aortic regurgitation. MITRAL VALVE The mitral valve is normal in structure. Mitral regurgitation is moderate. TRICUSPID VALVE The tricuspid valve is normal in structure. There is trace to mild tricuspid regurgitation. PULMONIC VALVE The pulmonic valve is not well visualized. GREAT VESSELS The aortic root is normal in size. PERICARDIAL EFFUSION There is no pericardial effusion. <Conclusion> The left ventricle is normal size. There is mild concentric left ventricular hypertrophy. The left ventricular function is normal. There is mild aortic regurgitation. Mitral regurgitation is moderate. There is trace to mild tricuspid regurgitation.
--- NOTE | 2017-03-06 17:07 | CP.PCM.DIS ---
Provider - Provider Date of Admission: 03/01/17 16:25 Attending physician: Dary Zaidi MD Time Spent in preparation of Discharge (in minutes): 30 Diagnosis - Discharge Diagnosis (1) Gross hematuria Status: Acute Priority: High (2) Diabetes mellitus Status: Acute Priority: Medium (3) Essential hypertension Status: Chronic Priority: Low Hospital Course - Lab Results Lab Results: Most Recent Lab Values WBC 6.1 10^3/ul (4.5-11.0) 03/05/17 07:30 RBC 4.38 10^6/uL (3.5-6.1) 03/05/17 07:30 Hgb 9.4 gm/dL (14.0-18.0) L 03/05/17 07:30 Hct 30.4 % (42.0-52.0) L 03/05/17 07:30 MCV 69.4 fL (80.0-105.0) L 03/05/17 07:30 MCH 21.5 pg (25.0-35.0) L 03/05/17 07:30 MCHC 30.9 g/dl (31.0-37.0) L 03/05/17 07:30 RDW 19.6 % (11.5-14.5) H 03/05/17 07:30 Plt Count 288 10^3/uL (120.0-450.0) 03/05/17 07:30 MPV 10.4 fl (7.0-11.0) 03/05/17 07:30 Gran % 60.9 % (50.0-68.0) 03/05/17 07:30 Lymph % (Auto) 24.6 % (22.0-35.0) 03/05/17 07:30 Williams % (Auto) 11.2 % (1.0-6.0) H 03/05/17 07:30 Eos % (Auto) 2.8 % (1.5-5.0) 03/05/17 07:30 Baso % (Auto) 0.5 % (0.0-3.0) 03/05/17 07:30 Gran # 3.69 (1.4-6.5) 03/05/17 07:30 Lymph # 1.5 (1.2-3.4) 03/05/17 07:30 Williams # 0.7 (0.1-0.6) H 03/05/17 07:30 Eos # 0.2 (0.0-0.7) 03/05/17 07:30 Baso # 0.03 K/mm3 (0.0-2.0) 03/05/17 07:30 Retic Count 0.98 % (0.5-1.5) 03/01/17 08:00 PT 11.3 Seconds (9.9-11.8) 03/02/17 22:43 INR 1.05 (0.93-1.08) 03/02/17 22:43 APTT 24.3 Seconds (23.7-30.8) 03/02/17 22:43 Sodium 139 mmol/L (132-148) 03/05/17 07:30 Potassium 3.8 mmol/L (3.6-5.0) 03/05/17 07:30 Chloride 107 mmol/L (98-107) 03/05/17 07:30 Carbon Dioxide 24 mmol/L (21-33) 03/05/17 07:30 Anion Gap 12 (10-20) 03/05/17 07:30 BUN 14 mg/dL (7-21) 03/05/17 07:30 Creatinine 0.9 mg/dL (0.5-1.4) 03/05/17 07:30 Est GFR ( Amer) > 60 03/05/17 07:30 Est GFR (Non-Af Amer) > 60 03/05/17 07:30 POC Glucose (mg/dL) 124 mg/dL (65-110) H 03/06/17 07:19 Random Glucose 109 mg/dL (70-110) 03/05/17 07:30 Hemoglobin A1c 6.4 % (4.2-6.5) 03/02/17 06:30 Calcium 8.5 mg/dL (8.4-10.5) 03/05/17 07:30 Iron 14 ug/dL (45-180) L 03/01/17 08:00 TIBC 363 ug/dL (261-462) 03/01/17 08:00 % Saturation 4 % (20-55) L 03/01/17 08:00 Ferritin 7.2 ng/mL 03/01/17 08:00 Total Bilirubin 0.8 mg/dL (0.2-1.3) 03/05/17 07:30 AST 20 U/L (15-59) 03/05/17 07:30 ALT 29 U/L (7-56) 03/05/17 07:30 Alkaline Phosphatase 42 U/L (38-133) 03/05/17 07:30 Total Protein 6.2 g/dL (5.8-8.3) 03/05/17 07:30 Albumin 3.1 g/dL (3.0-4.8) 03/05/17 07:30 Globulin 3.2 gm/dL 03/05/17 07:30 Albumin/Globulin Ratio 1.0 (1.1-1.8) L 03/05/17 07:30 Triglycerides 60 mg/dL (35-160) 03/02/17 06:30 Cholesterol 115 mg/dL (130-200) L 03/02/17 06:30 LDL Cholesterol Direct 46 mg/dL (0-129) 03/02/17 06:30 HDL Cholesterol 50 mg/dL (29-60) 03/02/17 06:30 Prostate Specific Ag 0.1 ng/mL (0.00-2.5) 03/04/17 08:11 Free PSA <0.1 ng/mL 03/01/17 06:00 % Free PSA Unable to calculate Percent (>25) 03/01/17 06:00 Total PSA 0.1 ng/mL (<=4.0) 03/01/17 06:00 Prostate Cancer Risk See note Percent 03/01/17 06:00 Vitamin B12 364 pg/mL (239-931) 03/01/17 08:00 Folate 14.0 ng/mL 03/01/17 08:00 TSH 3rd Generation 1.61 mIU/mL (0.46-4.68) 03/02/17 06:30 Urine Color Dark red (YELLOW) 02/28/17 16:45 Urine Appearance Turbid (CLEAR) 02/28/17 16:45 Urine pH 7.5 (4.7-8.0) 02/28/17 16:45 Ur Specific [place] 1.015 (1.005-1.035) 02/28/17 16:45 Urine Protein >=300 mg/dL (<30 mg/dL) H 02/28/17 16:45 Urine Glucose (UA) 250 mg/dL (NEGATIVE) H 02/28/17 16:45 Urine Ketones 40 mg/dL (NEGATIVE) H 02/28/17 16:45 Urine Blood Large (NEGATIVE) H 02/28/17 16:45 Urine Nitrate Positive (NEGATIVE) H 02/28/17 16:45 Urine Bilirubin Negative (NEGATIVE) 02/28/17 16:45 Urine Urobilinogen >=8.0 E.U./dL (<1 E.U./dL) 02/28/17 16:45 Ur Leukocyte Esterase Large Juan José/uL (NEGATIVE) H 02/28/17 16:45 Urine RBC Tntc /hpf (0-2) 02/28/17 16:45 Urine WBC 0 - 2 /hpf (0-6) 02/28/17 16:45 Urine Bacteria Few (NEG) 02/28/17 16:45 Blood Type A POSITIVE 03/02/17 13:36 Blood Type Confirm A POSITIVE 03/02/17 13:50 Antibody Screen Negative 03/02/17 13:36 Crossmatch See Detail 03/02/17 13:36 BBK History Checked No verified bt 03/02/17 13:36 Discharge Exam - Head Exam Head Exam: ATRAUMATIC, NORMAL INSPECTION, NORMOCEPHALIC - Eye Exam Eye Exam: EOMI, Normal appearance, PERRL Pupil Exam: NORMAL ACCOMODATION, PERRL - ENT Exam ENT Exam: Mucous Membranes Moist - Neck Exam Neck exam: Full Rom, Normal Inspection - Respiratory Exam Respiratory Exam: Clear to PA & Lateral, NORMAL BREATHING PATTERN. absent: Prolonged Expiratory Phase, Rales, Wheezes - GI/Abdominal Exam GI & Abdominal Exam: Normal Bowel Sounds - Extremities Exam Extremities exam: full ROM, normal capillary refill, normal inspection, pedal pulses present - Back Exam Back exam: FULL ROM, NORMAL INSPECTION. absent: CVA tenderness (L), CVA tenderness (R) - Neurological Exam Neurological exam: Alert, CN II-XII Intact, Normal Gait, Oriented x3, Reflexes Normal - Psychiatric Exam Psychiatric exam: Normal Affect, Normal Mood - Skin Skin Exam: Dry, Intact, Normal Color, Warm Discharge Plan - Discharge Medications Prescriptions: Oxybutynin XL [Ditropan XL] 5 mg PO DAILY #7 ter - Follow Up Plan Condition: FAIR Disposition: HOME/ ROUTINE Instructions: Urinary Incontinence (GEN), Diabetes Mellitus Type 1 in Adults ( GEN), Acute Hematuria (GEN), Hypertension (GEN) Additional Instructions: PLEASE FOLLOW UP WITH DR CONTRERAS CALL AND MAKE APPOINTMENT
--- NOTE | 2017-03-06 17:47 | CP.PCM.PN ---
Subjective - Date & Time of Evaluation Date of Evaluation: 03/06/17 Time of Evaluation: 17:33 - Subjective Subjective: Patient is being discharged today. As per request of Dr Vail pt was given Rx for Ditropan XL 5mg po daily ( # 30). Objective - Vital Signs/Intake and Output Vital Signs (last 24 hours): Temp Pulse Resp BP Pulse Ox 97.5 F L 56 L 20 152/72 H 98 03/06/17 07:48 03/06/17 07:48 03/06/17 07:48 03/06/17 09:33 03/06/17 07:48 Intake and Output: 03/06/17 03/06/17 06:59 18:59 Intake Total 1560 Output Total 800 Balance 760 - Medications Medications: Current Medications Acetaminophen (Tylenol 325mg Tab) 650 mg PO Q6H PRN PRN Reason: Pain, moderate (4-7) Atorvastatin Calcium (Lipitor) 10 mg PO DAILY [facility] Last Admin: 03/06/17 09:32 Dose: 10 mg Hydralazine HCl (Apresoline) 25 mg PO BID [facility] Last Admin: 03/06/17 09:33 Dose: 25 mg Sodium Chloride (Sodium Chloride 0.45%) 1,000 mls @ 100 mls/hr IV .Q10H [facility] Last Admin: 03/05/17 17:00 Dose: 100 mls/hr Insulin Human Lispro (Humalog) 0 units SC ACHS [facility] PRN Reason: Protocol Last Admin: 03/06/17 08:00 Dose: Not Given Lactulose (Enulose) 30 gm PO BID [facility] Last Admin: 03/06/17 09:29 Dose: 30 gm Lisinopril (Zestril) 10 mg PO DAILY [facility] Last Admin: 03/06/17 09:31 Dose: 10 mg Losartan Potassium (Cozaar) 100 mg PO DAILY [facility] Last Admin: 03/06/17 09:33 Dose: 100 mg Metformin HCl (Glucophage) 500 mg PO BRK [facility] Last Admin: 03/06/17 09:33 Dose: 500 mg Metoprolol Succinate (Toprol Xl) 25 mg PO BRK [facility] Last Admin: 03/06/17 09:33 Dose: 25 mg Morphine Sulfate (Morphine) 2 mg IVP Q6H PRN PRN Reason: Pain, severe (8-10) Ondansetron HCl (Zofran Inj) 4 mg IVP ONCE PRN PRN Reason: Nausea/Vomiting - Labs Labs: 03/05/17 07:30 03/05/17 07:30 PT 11.3 Seconds (9.9-11.8) 03/02/17 22:43 INR 1.05 (0.93-1.08) 03/02/17 22:43 APTT 24.3 Seconds (23.7-30.8) 03/02/17 22:43
[2017-03-06 17:54] VITALS: BP 159/80
--- NOTE | 2017-03-08 12:24 | OP ---
PROCEDURE DATE: 03/03/2017 PREOPERATIVE DIAGNOSES: Urinary retention, gross hematuria, history of prostate cancer. POSTOPERATIVE DIAGNOSES: Urinary retention, gross hematuria, history of prostate cancer, trauma. Th e bleeding looks like it is from the prostate, bladder neck. PROCEDURE: Cystoscopy, evacuation of clot and fulguration of bleeding sites at the bladder neck. Th ere were no complications. Insertion of a Hobbs catheter with traction to it. INDICATIONS: See history and physical and see the consult. This is a very pleasant gentleman who __ __. was at the end for the table. ____ all ____ the patient's daughter provided by the patient with translation. He had presented with gross hematuria. I saw him initially. He initially had a Hobbs. Apparently, this was removed and then after the catheter was removed, the patient was still having blood in the u rine. We discussed options, still passing blood, but did not want a Hobbs back in and did could this procedure. ____ the above procedure. Hemoglobin and hematocrit, PSA all noted on the chart. I discussed options. Specifically, I discussed the possibility of ____. ____. I do not know if he is on vacation or not, but the patient came here because of gross hematuria, but now the patient has been stabilized ____. Either way, the patient ____ hospital, leave the hospital, get a ride, etc. ____, but apparently for various reasons, he was not ____. ____. I ordered EKG, chest x-ray, etc. I ordered a transfusion of 2 units of blood. He is now here for the above listed procedure. FINDINGS: No ____ urethra, no strictures. I do want to mention daughter said he had prostate cancer treated with radiation needles, but I ____. ____. The prostate ____. I wonder if he some kind of TURP procedure, but ____.. ____ somewhat ____, not wide open, but not bad. In the bladder itself, there is some mucosal redness. Pictures were taken ____, but there are defini tely no bladder lesions that are causing bleeding ____ these are all from previous Hobbs. What there are ____ tremendous amount of clots. I think they are old leftover clots. I washed them out. I inserted a Hobbs catheter at the end. ____ table. Routine monitors were placed. Timeouts were ca lled confirmed the patient, positioning. I again spoke to his daughter, ____, but I spoke to her mul tiple times ____ father ____ with translation.. We confirmed the patient and positioning, lithotomy position. ____ funny anatomy. It is not visually occlusive totally and is not ____, but it is not wide, wide o pen. The bladder was inspected ____ lesions (these could be ____, but are definitely not ____ to be biopsi ed, I just want to wash out all the clots, a tremendous amount of clots and ____ Hobbs for a day or 2 . I now looked around. I do not see any ____. The bladder was inspected more closely ____. ____ and I see a little bleeding at the bladder neck area. I took pictures of it. I turned the wate r off and I watched it bleeding. ____. This stopped the bleeding. The cysto ____ Hobbs catheter ____ about 50 mL in the balloon and put it on mild to moderate traction with 3 right and actually the urine drained clear. The patient tolerated procedure well without complication. Aldair Peter MD cc: [phone] TT: 03/08/2017 10:34:57 tn 03/08/2017 11:23:01
--- NOTE | 2017-03-27 10:24 | OP ---
PROCEDURE DATE: 03/03/2017 PREOPERATIVE DIAGNOSES: Gross hematuria, urinary retention, clot urinary retention, voiding dysfunct ion. Possible history of prostate cancer. POSTOPERATIVE DIAGNOSES: Gross hematuria, urinary retention, clot urinary retention, voiding dysfunc tion. Possible history of prostate cancer. PROCEDURE: Cystoscopy, evacuation of a ton of clots, and fulguration of any bleeding sites. There w ere no specimens sent down. There were no complications. FINDINGS: Normal , no strictures. From the veru on in is not completely occlusive but not wide open. Something has been done to that prostate. It is not ambler. The daughter mentioned that the patient had radiation with another physician 10-15 years back. It almost looks as if there has been maybe some kind of minimally surgical procedure. Because it does not look to be like its ambler tissue. Within the bladder itself, there are a lot of clots that we washed out. And then there are some, what looks like bleeding sites along the prostate. There is no specific bladder lesion that is bleeding. It does not look like a transitional cell of t he bladder. The bleeding looks more prostatic in origin. We cauterized anything that looked abnorma l and at the termination of the procedure, we put a 3-way catheter in with the urine relatively clear . INDICATIONS: See the history and physical and multiple consultation notes. We have been following steve nava patient bleeding. We discussed options with the patient. There are a lot of factors. We d iscussed options. He is 89 years old, multiple medical issues. He has also been seeing another urol ogist previously. Most of the history is from the patient's daughter, Rae, who I have discussed with at length by way of impact hammer operator with her directly and I spoke to the patient. After discussing options, he is here for the above procedure. I did discuss the possibility for retu rning to him, to his primary urologist, but at this point, we are bringing the patient to the [facility]. It is Monday afternoon, 03/03/2017. I also want to mention this is a repeat of the dictation. As I am talking it out and thinking it thr ough, this is a repeat of a dictation. PROCEDURE ITSELF: After obtaining informed consent, the patient was placed on the table, routine mon itors were placed, timeouts were called. The patient was already on antibiotics. We removed the catheter insertion and then we introduced the cystoscope via the urethra under direct vision. There is no stricture. From the veru on in, the description is as follows: It is not wide open, but it is not completely occlusive. It is also not the ambler trilobar hypertro phy. Something has been done, but it is not a wide open resection (as mentioned above, about the pos sibility for radiation is also occurring). The procedure continues, but there is a tremendous amount of clots. We wash it out with the Exerscrip ev acuator. Now, we inspect more closely. I do not see any bleeding from the bladder itself. Some ble eding erythematous areas along the prostate which we now cauterize. We now irrigate and we make sure it is clear. Insert a Hobbs catheter via the urethra with mild trac tion. The patient tolerated the procedure well without complication. ADDENDUMS: 1. This is a repeat of a dictation. 2. Subsequently, the patient did well with clear urine. Aldair Peter MD cc: [id number] TT: 03/27/2017 10:23:31 en
--- NOTE | 2017-05-26 15:00 | PN ---
POSTOP NOTE DATE: 05/26/2017 Please see history and physical for further details and consultation notes and further notes. The patient is currently resting comfortably. PHYSICAL EXAMINATION VITAL SIGNS: Within normal limits today. ABDOMEN: Soft and nondistended. DIAGNOSES: Urinary retention, voiding dysfunction, hematuria. PLAN: As follows. Maintain the patient's current status. The patient remains stable. Aldair Peter MD
== END 2017-03-06 18:52 | disposition home or self-care (01) | DRG 670 ==
LOC: ED 15:41 → ERH 17:32 → 5RSO 19:59 → OBSVTOIN 03-01 16:25
PROVIDERS: ADMIT Internal Medicine; ATTEND Internal Medicine
PROC: 0T5B8ZZ Destruction of Bladder, Via Natural or Artificial Opening Endoscopic (ICD-10-PCS; 2017-03-03)
PROC: 0TCB8ZZ Extirpation of Matter from Bladder, Via Natural or Artificial Opening Endoscopic (ICD-10-PCS; principal; 2017-03-03 15:00)
DX: R31.0 Gross hematuria (principal); E11.9 Type 2 diabetes mellitus without complications; N39.0 Urinary tract infection, site not specified; N32.89 Other specified disorders of bladder; I10 Essential (primary) hypertension; Z79.02 Long term (current) use of antithrombotics/antiplatelets; Z79.899 Other long term (current) drug therapy; R40.2412 Glasgow coma scale score 13-15, at arrival to emergency department